=== PATIENT | male | born 1985 | race Caucasian/White ===

== ENCOUNTER 2016-09-02 14:44 | Emergency (ER) | payer MEDICAID ==
[~2016-09-02] VITALS: Wt 80.0 kg
[2016-09-02] MEDS ORDERED: NAPR-260 PO (16:47)
--- NOTE | 2016-09-02 17:26 | RADRPT ---
PROCEDURE: X-RAY RIGHT ELBOW CLINICAL INDICATION: Right elbow pain. TECHNIQUE: Two views of the right elbow are available for review COMPARISON: None available FINDINGS: The osseous structures, articular spaces, and surrounding soft tissues of the left elbow are intact. No acute fracture or dislocation is seen. No radiopaque foreign body is identified. No fat pad sa il sign is identified to indicate a hemarthrosis. A marker was placed adjacent to the lateral aspect of the elbow suggesting the possibility of lateral epicondylitis. No plain film findings are seen. IMPRESSION: 1. No evidence for fracture, subluxation or dislocation. 2. No evidence for erosive change. RPTAT: XX .Camilo Weinstein MD, Date Time Electronically viewed and signed by .Camilo Weinstein MD, on 09/02/2016 17:26 .T/
--- NOTE | 2016-09-02 17:39 | ERD ---
ER Documentation Chief Complaint Date/Time DATE: 09/02/16 TIME: 17:34 Chief Complaint R ELBOW PAIN NON TRAUMATIC. LIMITED ROM . NO DEFORMITY HPI Patient is a 31-year-old male who presents the ED with right elbow pain for 1 month. 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 He denies radiation of pain. Denies shoulder, wrist or hand pain. Denies fever or chills. Denies numbness or tingling. Denies swelling. Denies abdominal pain, nausea, vomiting or diarrhea. Denies chest pain, cough, shortness of breath or difficulty breathing. Denies weakness. ROS All systems reviewed and are negative except as per history of present illness. Medications Home Meds Active Scripts Naproxen* (Naprosyn*) 500 Mg Tablet, 500 MG PO BID Y for PAIN AND/OR INFLAMMATION, #30 TAB Prov:JUAN MERCHANT PA-C 09/02/16 Allergies Allergies: Coded Allergies: No Known Allergy (Unverified , 10/26/14) PMhx/Soc History of Surgery: Yes (Finger, knee, ankle) Anesthesia Reaction: No Hx Neurological Disorder: No Hx Respiratory Disorders: No Hx Cardiac Disorders: No Hx Psychiatric Problems: No Hx Miscellaneous Medical Probl: No Hx Alcohol Use: Yes (Socially) Hx Substance Use: No Hx Tobacco Use: Yes Smoking Status: Current every day smoker (1 cigarette per day) FmHx Family History: No coronary disease, No diabetes, No other Physical Exam Vitals Vital Signs Date Time Temp Pulse Resp B/P Pulse Ox O2 Delivery O2 Flow Rate FiO2 09/02/16 14:50 98.4 82 21 140/72 98 Physical Exam GENERAL: Well-developed, well-nourished male. Appears in no acute distress. LUNG: Clear to auscultation bilaterally. No rhonchi, wheezing, rales or coarse breath sounds. HEART: Regular rate and rhythm. No murmurs, rubs or gallops. Extremities: Equal pulses bilaterally. No peripheral clubbing, cyanosis or edema. No unilateral leg swelling. Tenderness to the lateral aspect of his right elbow. No snuffbox tenderness. No pain above or below his elbow. No shoulder pain. No deformities, step-offs, erythema or swelling. Pulses intact bilaterally. Radial ulnar and median nerve intact. NEUROLOGIC: Alert and oriented. Moving all four extremities. 5/5 strength in all extremities. Normal speech. Steady gait. SKIN: Normal color. Warm and dry. No rashes or lesions. Capillary refill < 2 seconds Procedures/MDM ER COURSE: I kept the patient and/or family informed of laboratory and diagnostic imaging results throughout the emergency room course. IMAGING STUDIES [place] [address] Radiology Main Line: [phone] DIAGNOSTIC IMAGING REPORT Patient: PATIENCE EISENBERG : 1985 Age: 31 Sex: M MR #: [id number] DOS: 09/02/16 1640 Ordering MD: JUAN MERCHANT PA-C Location: [facility] Room/Bed: PROCEDURE: X-RAY RIGHT ELBOW CLINICAL INDICATION: Right elbow pain. TECHNIQUE: Two views of the right elbow are available for review COMPARISON: None available FINDINGS: The osseous structures, articular spaces, and surrounding soft tissues of the left elbow are intact. No acute fracture or dislocation is seen. No radiopaque foreign body is identified. No fat pad sail sign is identified to indicate a hemarthrosis. A marker was placed adjacent to the lateral aspect of the elbow suggesting the possibility of lateral epicondylitis. No plain film findings are seen. IMPRESSION: 1. No evidence for fracture, subluxation or dislocation. 2. No evidence for erosive change. RPTAT: XX .Camilo Weinstein MD, MD Date Time Electronically viewed and signed by .Camilo Weinstein MD, MD on 09/02/2016 17: 26 .T/ CC: JUAN MERCHANT PA-C MEDICAL DECISION MAKING: This is a 31-year-old male who presents with right elbow pain for 1 month. Vital signs were reviewed. Patient is afebrile. Patient is not hypoxic. Patient is not toxic or ill-appearing. Patient likely has lateral epicondylitis. Low suspicion for dislocation, fracture, septic joint, compartment syndrome, osteomyelitis, cellulitis, avascular necrosis, neurological injury, vascular injury, tendon laceration, olecranon bursitis. DISCHARGE: At this time, patient is stable for discharge and outpatient management with no new complaints during the ER course. Patient was sent home with naproxen and to follow-up with orthopedics for further evaluation. Patient to restrict activities that cause pain to his elbow. Patient will be discharged home with instructions to recheck for new or worsening symptoms such as fever, nausea, weakness, LOC and to follow up with primary care in the next 1-2 days. Patient was advised to return to the ER for any new or worsening symptoms. Plan was discussed and patient and/or family understands and agrees. Home instructions were given. Departure Diagnosis: Primary Impression: Elbow pain Laterality: right Qualified Code: M25.521 - Right elbow pain Condition: Stable Referrals: DOCTOR,NOT ON STAFF (PCP) NGUYEN KING MD,IN [facility] Urgent Care 7 a.m.- 11 p.m. Every Day of the Week NO APPOINTMENT OR AUTHORIZATION NEEDED [facility] Hours: Mon-Fri 9:00 AM - 5:00 PM Additional Instructions: Call your primary care doctor TOMORROW for an appointment during the next 1-2 days.See the doctor sooner or return here if your condition worsens before your appointment time. JUAN MERCHANT PA-C Sep 02, 2016 17:39
[2016-09-02 17:48] VITALS: BP 125/69; PULSE 75; RESP 19; TEMP 98.3
== END 2016-09-02 17:49 | disposition home or self-care (01) ==
LOC: FTE 14:44
DX: M25.521 Pain in right elbow (principal); F17.210 Nicotine dependence, cigarettes, uncomplicated